=== PATIENT | male | born 1955 | race Caucasian/White ===

== ENCOUNTER 2019-01-07 11:01 | Emergency (ER) | payer SELFPAY ==
[~2019-01-07] VITALS: Ht 172.7 cm; Wt 99.0 kg
[2019-01-07 11:06] VITALS: BP 170/84
--- NOTE | 2019-01-07 11:42 | NUR ---
TO ROOM 27
--- NOTE | 2019-01-07 12:07 | NUR ---
ASSUMED CARE. PT ARRIVES TO ED WITH C/O DIZZY SPELL. PT REPORTS SECOND TIME OCCURING SINCE MOVING HERE FROM [place]. PT DENIES ANY TRUAMA OR NEURO HX. PT REPORTS NO VISUAL CHANGES BUT FELT DIZZY ENOUGH TO STOP DRIVING AND ASK TO BRING HIM HERE. PT CONNECTED TO ALL MONITORS AND CALL LIGHT IN REACH. AWAITING FURTHER ORDERS. VSS.
[2019-01-07 12:32] LABS: BASOPHILS # (AUTO) 0.03 x10^3/uL (0-0.1); BASOPHILS % (AUTO) 1 % (0-1); EOSINOPHILS # (AUTO) 0.17 x10^3/uL (0-0.4); EOSINOPHILS % (AUTO) 3 % (1-7); LYMPHOCYTES # (AUTO) 1.62 x10^3/uL (1-3.4); LYMPHOCYTES % (AUTO) 33 % (22-44); MD NO; MEAN CORPUSCULAR HEMOGLOBIN 33.5 pg (27.5-34.5); MEAN CORPUSCULAR HGB CONC 33.8 g/dL (33.2-36.2); MEAN PLATELET VOLUME 7.7 fL (7.4-10.4); MONOCYTES % (AUTO) 8 % (2-9); NEUTROPHILS # (AUTO) 2.74 x10^3/uL (1.8-6.8); NEUTROPHILS % (AUTO) 55 % (42-75); PLATELET COUNT 171 x10^3/uL (130-400); RED BLOOD COUNT 4.77 x10^6/uL (4.38-5.82); RED CELL DISTRIBUTION WIDTH 12.7 % (9.4-14.8)
[2019-01-07 12:44] LABS: ALANINE AMINOTRANSFERASE 41 U/L (12-78); ANION GAP 6 mmol/L (5-15); CALCIUM 8.5 mg/dL (8.5-10.1); CHLORIDE 110 mmol/L (98-107); CREATININE 0.92 mg/dL (0.7-1.3)
[2019-01-07 12:49] LABS: ALKALINE PHOSPHATASE 74 U/L (45-117); BILIRUBIN,TOTAL 0.4 mg/dL (0.2-1.0); TOTAL PROTEIN 7.1 g/dL (6.4-8.2); TROPONIN I < 0.015 ng/mL (0.000-0.045)
--- NOTE | 2019-01-07 14:06 | NUR ---
Patient/Caregiver given discharge instructions and they have confirmed that they understand the instructions. Patient ambulatory with steady gait.
== END 2019-01-07 14:18 | disposition home or self-care (01) ==
LOC: ED 12:07
DX: F41.1 Generalized anxiety disorder (principal); Z87.891 Personal history of nicotine dependence
CPT/HCPCS: 36415; 71045; 80053; 83735; 84443; 84484; 85025; 93005; 99284